=== PATIENT | female | born 1945 ===

== ENCOUNTER 2023-05-01 05:35 | Day surgery (SDC) | payer OTHER ==
[~2023-05-01] VITALS: Ht 152.4 cm; Wt 81.6 kg
[~2023-05-01 05:35] MED LIST: LEVOTHYROXINE25 MCG PO
[2023-05-01] MEDS ORDERED: CLINDAMYCIN PHOSPHATE 150 MG/ML (900mg) ONE (07:29)
[2023-05-01] MEDS ORDERED: TRIAMCINOLONE ACETONIDE 40 MG/ML VIAL ONE (08:43)
[2023-05-01] MEDS ORDERED: CLINDAMYCIN PHOSPHATE 150 MG/ML (900mg) IV ONE (09:15)
[2023-05-01] MEDS ORDERED: TRIAMCINOLONE ACETONIDE 40 MG/ML VIAL IJ ONE (09:15)
== END 2023-05-01 10:50 | disposition home or self-care (01) ==
LOC: CIR.AMB 05:35
PROVIDERS: ATTEND Surgery Surgery of the Hand
DX: M67.843 Other specified disorders of tendon, right hand (principal); Z88.0 Allergy status to penicillin